=== PATIENT | male | born 1965 | race African-American/Black ===

== ENCOUNTER 2021-10-28 20:13 | Emergency (ER) | payer MEDICAID ==
[~2021-10-28] VITALS: Ht 182.9 cm; Wt 102.0 kg
[~2021-10-28 20:13] MED LIST: ALBU17AE26; AMLO10TA80 PO; ASPI-986 PO; ATOR40TA70 PO; CHLO25TA27 PO; CLOP-31 PO; GLIM1TAB PO; HYDR-519 PO; LISI40TA13 PO; METF-414 PO; NAPR-681 PO; TRAM50TA3 PO
[2021-10-28] MEDS ORDERED: ACETAMINOPHEN 325MG TABLET PO STA (20:47)
[2021-10-28 20:56] LABS: HEMATOCRIT. 36.9 % (42.0-52.0); HEMOGLOBIN. 12.5 g/dL (14.0-18.0); MEAN CORPUSCULAR HEMOGLOBIN 34.9 pg (28.0-32.0); MEAN CORPUSCULAR VOLUME 103.1 fL (80.0-94.0); MEAN PLATELET VOLUME 8.2 fl (7.4-10.4); PLATELET 215 x1000/uL (130-400); RED BLOOD CELL COUNT 3.58 mill/uL (4.7-6.1); RED CELL DISTRIBUTION WIDTH 13.6 % (11.6-14.6)
[2021-10-28 21:00] LABS: CHLORIDE 106 mEq/L (98-107)
[2021-10-28] MEDS ORDERED: SODIUM CHLORIDE 0.9% 1,000 ML IV ONE ×2 (21:00)
[2021-10-28 21:10] LABS: ETHANOL BLOOD < 10 mg/dL
[2021-10-28 22:19] LABS: PLATELET ESTIMATE NORMAL
[2021-10-28] MEDS ORDERED: ONDANSETRON HCL 4MG/2ML INJ IV STA (22:20)
[2021-10-28] MEDS ORDERED: MORPHINE SULFATE 4 MG/ML CPJ (NOT FOR IM USE) IV STA (22:20)
[2021-10-28] MEDS ORDERED: CEFTRIAXONE 1 G PREMIX 50 ML IV ONE (22:30)
[2021-10-28] MEDS ORDERED: AZITHROMYCIN 500 MG in DEXT 5% WATER 250 ML IV SCH (22:30)
[2021-10-28 22:37] VITALS: BP 154/85
[2021-10-28] MEDS ORDERED: AMOX1TAB16 MT (22:43)
[2021-10-28] MEDS ORDERED: AZIT250T12 MT (22:43)
[2021-10-28 22:47] LABS: CLARITY URINE CLEAR (CLEAR); COLOR URINE YELLOW (YELLOW); KETONES URINE NEGATIVE (NEGATIVE); LEUKOCYTE ESTERASE URINE NEGATIVE (NEGATIVE); NITRITE URINE NEGATIVE (NEGATIVE); OCCULT BLOOD URINE NEGATIVE (NEGATIVE); PROTEIN URINE NEGATIVE (NEGATIVE); SPECIFIC GRAVITY URINE 1.016 (1.005-1.030)
[2021-10-28 23:03] LABS: *AMPHETAMINES SCREEN URINE NEGATIVE (NEGATIVE); *BARBITURATES SCREEN URINE NEGATIVE (NEGATIVE); *BENZODIAZEPINES SCREEN URINE NEGATIVE (NEGATIVE); *COCAINE SCREEN URINE PRESUMTIVE POSITIVE (NEGATIVE); CANNABINOID URINE SCREEN NEGATIVE (NEGATIVE); METHADONE URINE SCREEN NEGATIVE (NEGATIVE); OPIATES URINE SCREEN NEGATIVE (NEGATIVE); PHENCYCLIDINE URINE SCREEN NEGATIVE (NEGATIVE)
[2021-10-29] MEDS ORDERED: NIRM1TAB PO (07:10)
[2021-10-29] MEDS ORDERED: TOPUD PO (07:10)
== END 2021-10-29 03:15 | disposition home or self-care (01) ==
LOC: ER 20:13
DX: U07.1 COVID-19 (principal); J12.82 Pneumonia due to coronavirus disease 2019; R53.83 Other fatigue; R53.1 Weakness; I25.2 Old myocardial infarction; E11.9 Type 2 diabetes mellitus without complications; I10 Essential (primary) hypertension; Z98.61 Coronary angioplasty status; Z79.82 Long term (current) use of aspirin
CPT/HCPCS: 36415; 71045; 80053; 80305; 80320; 81003; 83880; 84484; 85025; 87426; 93005; 96361; 96365; 96367; 96375; 99285; C9803; J0456; J0696; J2270; J2405; J7030; J7060; G0480

== ENCOUNTER 2021-10-29 05:28 | Emergency (ER) | payer MEDICAID ==
[~2021-10-29] VITALS: Ht 170.2 cm; Wt 102.0 kg
[~2021-10-29 05:28] MED LIST changes: +AMOX1TAB16 MT; +AZIT250T12 MT
[2021-10-29 06:01] VITALS: BP 157/90
[2021-10-29] MEDS ORDERED: NIRM1TAB PO (07:10)
[2021-10-29] MEDS ORDERED: TOPUD PO (07:10)
== END 2021-10-29 07:42 | disposition home or self-care (01) ==
LOC: ER 05:28
DX: U07.1 COVID-19 (principal); E11.9 Type 2 diabetes mellitus without complications; I10 Essential (primary) hypertension; J45.909 Unspecified asthma, uncomplicated; Z98.61 Coronary angioplasty status; Z79.84 Long term (current) use of oral hypoglycemic drugs; Z79.82 Long term (current) use of aspirin
CPT/HCPCS: 99281

== ENCOUNTER 2024-08-25 16:31 | Emergency (ER) | payer MEDICAID ==
[~2024-08-25] VITALS: Ht 170.2 cm; Wt 91.0 kg
[~2024-08-25 16:31] MED LIST changes: -GLIM1TAB PO; +GLIM1TAB55 PO; +NIRM1TAB PO; +TOPUD PO
[2024-08-25 16:39] VITALS: O2SAT 100
[2024-08-25 17:45] LABS: BASOPHILS % 0.7 % (0.0-2.0); DIFFERENTIAL COMMENT 0; EOSINOPHILS % 3.3 % (0.0-5.0); HEMATOCRIT. 35.9 % (42.0-52.0); HEMOGLOBIN. 12.1 g/dL (14.0-18.0); LYMPHOCYTES % 27.6 % (20.0-50.0); MEAN CORPUSCULAR HEMOGLOBIN 35.8 pg (28.0-32.0); MEAN CORPUSCULAR HGB CONC 33.7 g/dL (31.0-37.0); MEAN CORPUSCULAR VOLUME 106.1 fL (80.0-94.0); MEAN PLATELET VOLUME 8.6 fl (7.4-10.4); MONOCYTES % 12.1 % (2.0-8.0); NEUTROPHILS % 56.3 % (40.0-76.0); PLATELET 194 x1000/uL (130-400); RED BLOOD CELL COUNT 3.38 mill/uL (4.7-6.1); WHITE BLOOD COUNT 6.8 x1000/uL (4.5-11.0)
[2024-08-25 17:48] LABS: CARBON DIOXIDE 28 mEq/L (21-32); CHLORIDE 108 mEq/L (98-107); POTASSIUM 3.9 mEq/L (3.5-5.1); SODIUM 142 mEq/L (136-145)
[2024-08-25 17:49] LABS: CALCIUM 9.8 mg/dL (8.7-10.4)
[2024-08-25 17:53] LABS: GLUCOSE 119 mg/dL (70-105)
[2024-08-25 17:54] LABS: UREA NITROGEN BLOOD 9 mg/dL (9-23)
[2024-08-25 17:55] LABS: ALANINE AMINOTRANSFERASE 61 IU/L (10-49); ASPARTATE AMINOTRANSFERASE 68 IU/L (<34)
[2024-08-25 17:56] LABS: BILIRUBIN DIRECT 0.3 mg/dL (<=3.0); BILIRUBIN TOTAL 0.7 mg/dL (0.1-1.0); PROTEIN TOTAL 6.9 g/dL (6.0-8.3); TROPONIN I HIGH SENSITIVITY 10 ng/L (3.0-53)
[2024-08-25] MEDS: MORPHINE SULFATE 4 MG/ML INJ (FOR IV/IM USE) IM ONE (18:47)
[2024-08-25] MEDS ORDERED: IBUP-2030 MT (18:49)
[2024-08-25 19:06] VITALS: BP 167/85; PULSE 68; RESP 16; TEMP 36.9; O2SAT 100
== END 2024-08-25 19:07 | disposition home or self-care (01) ==
LOC: ER 16:31
DX: K42.9 Umbilical hernia without obstruction or gangrene (principal); K40.90 Unilateral inguinal hernia, without obstruction or gangrene, not specified as recurrent; I10 Essential (primary) hypertension; E11.9 Type 2 diabetes mellitus without complications; J45.909 Unspecified asthma, uncomplicated; Z79.899 Other long term (current) drug therapy; Z79.84 Long term (current) use of oral hypoglycemic drugs; Z95.5 Presence of coronary angioplasty implant and graft; Z79.82 Long term (current) use of aspirin; Z79.02 Long term (current) use of antithrombotics/antiplatelets
CPT/HCPCS: 80076; 80048; 83690; 85025; 84484; 36415; 96372; 99283; J2270; Z7610

== ENCOUNTER 2024-09-21 00:02 | Emergency (ER) | payer MEDICAID ==
[~2024-09-21] VITALS: Ht 170.2 cm; Wt 87.0 kg
[~2024-09-21 00:02] MED LIST changes: +IBUP-2030 MT
[2024-09-21 00:08] VITALS: TEMP 36.7; O2SAT 100
[2024-09-21] MEDS: ONDANSETRON HCL 4MG/2ML INJ IV ONE (00:55)
[2024-09-21] MEDS: ACETAMINOPHEN 1000MG/100ML 100 ML IV ONE (00:55)
[2024-09-21 01:09] LABS: BASOPHILS % 0.3 % (0.0-2.0); DIFFERENTIAL COMMENT 0; EOSINOPHILS % 5.3 % (0.0-5.0); HEMATOCRIT. 35.9 % (42.0-52.0); HEMOGLOBIN. 12.3 g/dL (14.0-18.0); MEAN CORPUSCULAR HGB CONC 34.3 g/dL (31.0-37.0); MEAN CORPUSCULAR VOLUME 104.9 fL (80.0-94.0); MEAN PLATELET VOLUME 8.9 fl (7.4-10.4); MONOCYTES % 13.1 % (2.0-8.0); NEUTROPHILS % 40.3 % (40.0-76.0); PLATELET 229 x1000/uL (130-400); RED BLOOD CELL COUNT 3.42 mill/uL (4.7-6.1); RED CELL DISTRIBUTION WIDTH 12.7 % (11.6-14.6); WHITE BLOOD COUNT 6.2 x1000/uL (4.5-11.0)
[2024-09-21 01:19] LABS: CARBON DIOXIDE 27 mEq/L (21-32); CHLORIDE 107 mEq/L (98-107); POTASSIUM 3.8 mEq/L (3.5-5.1); SODIUM 142 mEq/L (136-145)
[2024-09-21 01:20] LABS: CALCIUM 9.8 mg/dL (8.7-10.4)
[2024-09-21 01:25] LABS: CREATININE 0.9 mg/dL (0.6-1.3); GLUCOSE 82 mg/dL (70-105); UREA NITROGEN BLOOD 13 mg/dL (9-23)
[2024-09-21] MEDS: MORPHINE SULFATE 4 MG/ML INJ (FOR IV/IM USE) IV NR (02:07)
[2024-09-21] MEDS ORDERED: IBUP-2029 MT (05:42)
[2024-09-21] MEDS ORDERED: LIDO-53 TP (05:42)
[2024-09-21] MEDS ORDERED: BACL-141 MT (05:42)
[2024-09-21] MEDS: HYDROCODONE/ACETAMINOPHEN 5/325MG TABLET PO NR (06:36)
[2024-09-21 06:39] VITALS: BP 159/86; PULSE 66; RESP 12; O2SAT 99
== END 2024-09-21 07:02 | disposition home or self-care (01) ==
LOC: ER 00:30
DX: S22.32XA Fracture of one rib, left side, initial encounter for closed fracture (principal); R10.30 Lower abdominal pain, unspecified; E11.9 Type 2 diabetes mellitus without complications; I10 Essential (primary) hypertension; J45.909 Unspecified asthma, uncomplicated; K42.9 Umbilical hernia without obstruction or gangrene; Z79.02 Long term (current) use of antithrombotics/antiplatelets; Z79.82 Long term (current) use of aspirin; Z79.84 Long term (current) use of oral hypoglycemic drugs; Z79.899 Other long term (current) drug therapy; X58.XXXA Exposure to other specified factors, initial encounter; Y93.89 Activity, other specified; Y92.89 Other specified places as the place of occurrence of the external cause; Y99.8 Other external cause status
CPT/HCPCS: 80048; 85025; 36415; 74176; 93005; 96365; 96375; 99285; J2405; J2270; Z7610 ×2; J0131

== ENCOUNTER 2024-09-25 21:24 | Emergency (ER) | payer MEDICAID ==
[~2024-09-25] VITALS: Ht 170.2 cm; Wt 86.0 kg
[~2024-09-25 21:24] MED LIST changes: +BACL-141 MT; +IBUP-2029 MT; +LIDO-53 TP
[2024-09-25 22:39] VITALS: O2SAT 100
[2024-09-26 00:41] LABS: BASOPHILS % 1.3 % (0.0-2.0); DIFFERENTIAL COMMENT 0; EOSINOPHILS % 3.6 % (0.0-5.0); HEMATOCRIT. 37.4 % (42.0-52.0); HEMOGLOBIN. 12.4 g/dL (14.0-18.0); LYMPHOCYTES % 38.1 % (20.0-50.0); MEAN CORPUSCULAR HGB CONC 33.3 g/dL (31.0-37.0); MEAN CORPUSCULAR VOLUME 105.2 fL (80.0-94.0); MEAN PLATELET VOLUME 8.7 fl (7.4-10.4); MONOCYTES % 10.4 % (2.0-8.0); NEUTROPHILS % 46.6 % (40.0-76.0); PLATELET 187 x1000/uL (130-400); RED BLOOD CELL COUNT 3.55 mill/uL (4.7-6.1); RED CELL DISTRIBUTION WIDTH 12.4 % (11.6-14.6); WHITE BLOOD COUNT 6.3 x1000/uL (4.5-11.0)
[2024-09-26 00:46] LABS: CHLORIDE 105 mEq/L (98-107); POTASSIUM 3.8 mEq/L (3.5-5.1); SODIUM 141 mEq/L (136-145)
[2024-09-26 00:47] LABS: CALCIUM 9.9 mg/dL (8.7-10.4); CARBON DIOXIDE 27 mEq/L (21-32)
[2024-09-26 00:52] LABS: CREATININE 0.9 mg/dL (0.6-1.3); GLUCOSE 84 mg/dL (70-105); UREA NITROGEN BLOOD 10 mg/dL (9-23)
[2024-09-26] MEDS: KETOROLAC 15MG/ML VIAL IM ONE (01:21)
[2024-09-26] MEDS: ONDANSETRON HCL 4MG TABLET PO ONE (01:21)
[2024-09-26 01:37] LABS: TROPONIN I HIGH SENSITIVITY 13 ng/L (3.0-53)
[2024-09-26 03:38] LABS: CLARITY URINE CLOUDY (CLEAR); COLOR URINE YELLOW (YELLOW); GLUCOSE URINE NEGATIVE (NEGATIVE); KETONES URINE TRACE (NEGATIVE); LEUKOCYTE ESTERASE URINE NEGATIVE (NEGATIVE); NITRITE URINE NEGATIVE (NEGATIVE); OCCULT BLOOD URINE NEGATIVE (NEGATIVE); PH URINE 5.5 (4.5-8.0); PROTEIN URINE TRACE (NEGATIVE); SPECIFIC GRAVITY URINE 1.026 (1.005-1.030)
[2024-09-26] MEDS ORDERED: NAPR-1176 MT (04:12)
[2024-09-26 04:49] LABS: SQUAMOUS EPITHELIAL CELL URINE FEW /lpf (RARE/1+)
[2024-09-26 04:50] LABS: BACTERIA URINE NONE SEEN; RBC URINE 0-2 /hpf (0-2); WBC URINE 0-2 /hpf (0-2)
[2024-09-26 04:53] VITALS: BP 164/95; PULSE 73; RESP 18; TEMP 36.7; O2SAT 98
== END 2024-09-26 04:56 | disposition home or self-care (01) ==
LOC: ER 21:24
DX: K40.20 Bilateral inguinal hernia, without obstruction or gangrene, not specified as recurrent (principal); K42.9 Umbilical hernia without obstruction or gangrene; R51.9 Headache, unspecified; R03.0 Elevated blood-pressure reading, without diagnosis of hypertension; E11.9 Type 2 diabetes mellitus without complications; I10 Essential (primary) hypertension; I67.82 Cerebral ischemia; J45.909 Unspecified asthma, uncomplicated; Z79.02 Long term (current) use of antithrombotics/antiplatelets; Z79.1 Long term (current) use of non-steroidal anti-inflammatories (NSAID); Z79.82 Long term (current) use of aspirin; Z79.84 Long term (current) use of oral hypoglycemic drugs; Z79.899 Other long term (current) drug therapy
CPT/HCPCS: 99285; 80048; 81003; 85025; 84484; 36415; 71045; 70450; 74176; 93005; 96372; Q0162; J1885; Z7610

== ENCOUNTER 2024-10-15 17:02 | Emergency (ER) | payer MEDICAID ==
[~2024-10-15] VITALS: Ht 170.2 cm; Wt 84.0 kg
[~2024-10-15 17:02] MED LIST changes: +NAPR-1176 MT
[2024-10-15 17:10] VITALS: O2SAT 99
[2024-10-15 17:53] LABS: HEMATOCRIT. 32.6 % (42.0-52.0); HEMOGLOBIN. 11.2 g/dL (14.0-18.0); MEAN PLATELET VOLUME 8.1 fl (7.4-10.4); PLATELET 228 x1000/uL (130-400); RED BLOOD CELL COUNT 3.13 mill/uL (4.7-6.1); RED CELL DISTRIBUTION WIDTH 12.9 % (11.6-14.6)
[2024-10-15 17:59] LABS: CREATININE 0.9 mg/dL (0.6-1.3); UREA NITROGEN BLOOD 11 mg/dL (9-23)
[2024-10-15 18:21] LABS: CLARITY URINE CLEAR (CLEAR); COLOR URINE YELLOW (YELLOW); GLUCOSE URINE NEGATIVE (NEGATIVE); KETONES URINE NEGATIVE (NEGATIVE); LEUKOCYTE ESTERASE URINE NEGATIVE (NEGATIVE); NITRITE URINE NEGATIVE (NEGATIVE); OCCULT BLOOD URINE NEGATIVE (NEGATIVE); PH URINE 6.5 (4.5-8.0); PROTEIN URINE NEGATIVE (NEGATIVE); SPECIFIC GRAVITY URINE 1.021 (1.005-1.030); UROBILINOGEN URINE 1.0 E.U./dL (0.2-1.0)
[2024-10-15 19:02] LABS: EOSINOPHILS % MANUAL 8.0 % (0.0-5.0); LYMPHOCYTES % MANUAL 41.0 % (20.0-50.0); MONOCYTES % MANUAL 12.0 % (2.0-8.0); NEUTROPHILS % MANUAL 39.0 % (45.0-75.0); PLATELET ESTIMATE NORMAL
[2024-10-15] MEDS: KETOROLAC 30MG/ML VIAL IV ONE (20:13)
[2024-10-15] MEDS: ACETAMINOPHEN 325MG TABLET PO ONE (21:30)
[2024-10-15] MEDS ORDERED: ACET-2708 MT (21:31)
[2024-10-15 21:53] VITALS: BP 188/95; PULSE 50; RESP 18; TEMP 36.8; O2SAT 100
== END 2024-10-15 22:09 | disposition home or self-care (01) ==
LOC: ER 17:02
DX: K40.20 Bilateral inguinal hernia, without obstruction or gangrene, not specified as recurrent (principal); J45.909 Unspecified asthma, uncomplicated; E11.9 Type 2 diabetes mellitus without complications; I10 Essential (primary) hypertension; Z79.899 Other long term (current) drug therapy; Z98.890 Other specified postprocedural states
CPT/HCPCS: 99285; 96374; 93976; 80048; 81003; 85025; 36415; 76870; J1885

== ENCOUNTER 2025-02-03 04:30 | Emergency (ER) | payer MEDICAID ==
[~2025-02-03] VITALS: Ht 170.2 cm; Wt 84.0 kg
[~2025-02-03 04:30] MED LIST changes: +ACET-2708 MT; +IBUP-1455 MT; -IBUP-2029 MT; -LISI40TA13 PO; +LISI40TA21 PO
[2025-02-03 04:45] VITALS: O2SAT 100
[2025-02-03] MEDS: KETOROLAC 15MG/ML VIAL IM ONE (05:08)
[2025-02-03] MEDS: CYCLOBENZAPRINE 10MG TABLET PO ONE (05:08)
[2025-02-03] MEDS: LIDOCAINE 5% PATCH TOP SCH (05:08)
[2025-02-03] MEDS ORDERED: CYCL5TAB3 MT (05:40)
[2025-02-03] MEDS ORDERED: LIDO-53 TP (05:40)
[2025-02-03] MEDS: ONDANSETRON HCL 4MG TABLET PO ONE (05:51)
[2025-02-03 05:55] VITALS: BP 157/98; PULSE 79; RESP 20; TEMP 36.9; O2SAT 99
== END 2025-02-03 05:57 | disposition home or self-care (01) ==
LOC: ER 04:30
DX: M54.2 Cervicalgia (principal); E11.9 Type 2 diabetes mellitus without complications; I10 Essential (primary) hypertension; J45.909 Unspecified asthma, uncomplicated; Z79.899 Other long term (current) drug therapy
CPT/HCPCS: 99284; 96372; J1885; Q0162